=== PATIENT | male | born 1975 | race Caucasian/White ===

== ENCOUNTER 2019-03-15 11:06 | Emergency (ER) | payer BC, OTHER ==
[~2019-03-15] VITALS: Ht 170.2 cm; Wt 59.0 kg
[~2019-03-15 11:06] MED LIST: OXYC1TAB16 PO
[2019-03-15] MEDS ORDERED: TETANUS,DIPTH,PERTUSS P/F (BOOSTRIX) 0.5 ML VIAL IM ONE (11:30)
[2019-03-15] MEDS ORDERED: LIDOCAINE 1% INJ 20 ML 20 ML VIAL INJ ONE (11:30)
--- NOTE | 2019-03-15 11:38 | ED Upper Extremity ---
General Chief Complaint: Laceration Stated Complaint: WC LT HAND LAC Source: patient, other Exam Limitations: no limitations History of Present Illness Date Seen by Provider: Mar 15, 2019 Time Seen by Provider: 11:24 Initial Comments Patient presents to ER by private conveyance with chief complaint he was at work and had a piece of aluminum that was on his shoulder slide down his arm causing a small superficial laceration in his left forearm and resting on his left wrist causing a 3 cm laceration. He got the bleeding to stop immediately. He is not up-to-date on his tetanus shot. He is only having very mild pain has not taken anything for it. Does not have any significant medical or surgical history. Allergies and Home Medications Allergies Coded Allergies: No Known Drug Allergies (Unverified , 09/30/15) Home Medications No Active Prescriptions or Reported Meds Patient Home Medication List Home Medication List Reviewed: Yes Review of Systems Constitutional: No chills, No diaphoresis EENTM: No ear discharge, No ear pain Respiratory: No cough, No short of breath Cardiovascular: No chest pain, No edema Gastrointestinal: No abdominal pain, No nausea Past Tiybmfb-Zyzcic-Kskhum Hx Patient Social History Alcohol Use: Occasionally Uses Recreational Drug Use: No Smoking Status: Current Everyday Smoker Type Used: Cigarettes (1 ppd) 2nd Hand Smoke Exposure: No Recent Hopitalizations: No Immunizations Up To Date Tetanus Booster (TDap): Unknown Seasonal Allergies Seasonal Allergies: No Past Medical History Surgeries: Yes (HERNIA REPAIR) Respiratory: No Cardiac: No Neurological: No Reproductive Disorders: No Sexually Transmitted Disease: No HIV/AIDS: No Genitourinary: No Gastrointestinal: No Musculoskeletal: Yes (MILD SCOLIOSIS) Scoliosis Endocrine: No HEENT: No Loss of Vision: Bilateral Hearing Impairment: Denies Cancer: No Psychosocial: No Integumentary: No Blood Disorders: No Adverse Reaction/Blood Tranf: No Physical Exam Vital Signs Vital Signs - First Documented 03/15/19 11:10 Temp 97.5 Pulse 64 Resp 20 B/P (MAP) 114/73 (87) Pulse Ox 99 O2 Delivery Room Air Capillary Refill : Less Than 3 Seconds Height, Weight, BMI Height: 5'7.00" Weight: 130lbs. oz. 58.454430qh; 22.76 BMI Method:Stated General Appearance: WD/WN, no apparent distress HEENT: PERRL/EOMI, pharynx normal Cardiovascular: normal peripheral pulses, regular rate, rhythm Respiratory: no respiratory distress, no accessory muscle use Elbow/Forearm: normal inspection, non-tender, normal ROM, Left Neurologic/Tendon: normal sensation, normal motor functions, normal tendon functions, responds to pain, no evidence tendon injury Neurologic/Psychiatric: no motor/sensory deficits, alert, normal mood/affect, oriented x 3 Skin: normal color, warm/dry, other (3 cm laceration on the left dorsal wrist, half is superficial and half is into the subcutaneous. Left forearm has a V- shaped superficial skin tear approximately 1 cm) Procedures/Interventions Wound Location: Upper Extremities Other Wound Location Left dorsal wrist Wound Length (cm): 3 Wound's Depth, Shape: linear, sub Q Wound Explored: no foreign body removed Irrigated w/ Saline (ccs): 50 Betadine Prep?: Yes (chlorhexidine and sterile saline) Volume Anesthetic (ccs): 3 Suture: Ethlion Suture Size: 4-0 Number of Sutures: 4 Layer Closure?: 1 Sterile Dressing Applied?: Yes Progress The wound was thoroughly cleaned with chlorhexidine and sterile saline. We used gauze and thoroughly explored the wound demonstrating a small tear in the extensor retinaculum but the tendons were intact. No foreign debris was seen. We then infiltrated the skin edges with 3 cc of 1% lidocaine without epinephrine. We then reapproximated the skin edges and closed the wound using 4 simple interrupted sutures using 4-0 Ethilon. The patient tolerated procedure well. Progress/Results/Core Measures Results/Orders My Orders Orders - MAGDALENO PEREZ Lidocaine 1% Inj 20 Ml (Xylocaine 1% Inj (03/15/19 11:30) Dipht,Pertuss(Acell),Tet Adult (Boostrix (03/15/19 11:30) Medications Given in ED Current Medications Medications Dose Ordered Sig/Tracy Route Start Time Stop Time Status Last Admin Dose Admin Diphtheria/ Tetanus/Acell Pertussis 0.5 ml ONCE ONCE IM 03/15/19 11:30 03/15/19 11:31 DC 03/15/19 11:42 0.5 ML Lidocaine HCl 20 ml ONCE ONCE INJ 03/15/19 11:30 03/15/19 11:31 DC 03/15/19 11:41 5 ML Vital Signs/I&O 03/15/19 11:10 Temp 97.5 Pulse 64 Resp 20 B/P (MAP) 114/73 (87) Pulse Ox 99 O2 Delivery Room Air Progress Progress Note : Time: 11:32 Progress Note Skin laceration by sheet of aluminum. Low suspicion for risk of fracture. Offered x-ray and patient declined. Patient declining anything for pain at this time. We'll give him a tetanus shot, clean the wound thoroughly with chlor hexidine flush it out and then stitch it. Departure Impression Primary Impression: Laceration of left wrist without complication Qualified Codes: S61.512A - Laceration without foreign body of left wrist, initial encounter Additional Impression: Skin tear of left forearm without complication Qualified Codes: S51.812A - Laceration without foreign body of left forearm, initial encounter Disposition: HOME, SELF-CARE Condition: Improved Departure-Patient Inst. Decision time for Depature: 12:31 Referrals: VALENTINA REIS MD (PCP/Family) Primary Care Physician Patient Instructions: Laceration Repair With Stitches (DC) Add. Discharge Instructions: Keep the wound clean with right ear soap and water. Apply a small dollop of Vaseline over the stitches to keep them clean and then put a gauze dressing over it changed daily or as often as it becomes soiled. If you have swelling you can use an Garth bandage, ice and elevation of the hand above the level of your heart. Tylenol 1000 mg every 8 hours as needed for pain. Ibuprofen 800 mg every 8 hours as needed for pain. Return to the ER or to your primary care doctor in 7-10 days to have the stitches out. Take the Bactrim one tablet twice a day for the next 2 days to prevent infection. Return to the doctor if you see increased redness swelling or other signs of infection such as fever or nausea. All discharge instructions reviewed with patient and/or family. Voiced understanding. Scripts Sulfamethoxazole/Trimethoprim (Bactrim Ds Tablet) 1 Each Tablet 1 EACH PO BID for 2 Days, #4 TAB 0 Refills Prov: ANA,MAGDALENO Royal 03/15/19 Work/School Note: Work Release Form Date Seen in the Emergency Department: Mar 15, 2019 Return to Work: Mar 15, 2019 Restrictions: Need Release from Doctor Other Restrictions Listed Below: Sutures out in 7-10 days. Keep dressed with gauze and do not submerse hand. Restrictions: Minimize repetitive motion of left wrist until 6/14/19. MAGDALENO PEREZ J Mar 15, 2019 11:38
[2019-03-15] MEDS ORDERED: SULF1TAB35 PO (12:35)
[2019-03-15 12:49] VITALS: BP 108/65
--- NOTE | 2019-03-15 12:49 | NUR ---
4 SUTURES OF 4-0 MONOSOF PLACED.
--- NOTE | 2019-03-15 12:49 | NUR ---
DISCHARGED TO HOME WITH REVIEW OF INSTRUCTIONS VERBALIZED AND WORK COMP PAERWORK GIVEN.
== END 2019-03-15 12:49 | disposition home or self-care (01) ==
LOC: EDUNIT# 11:06 → ER FS 11:08
DX: S61.512A Laceration without foreign body of left wrist, initial encounter (principal); M41.9 Scoliosis, unspecified; F17.210 Nicotine dependence, cigarettes, uncomplicated; Z23 Encounter for immunization; Z98.890 Other specified postprocedural states; W26.8XXA Contact with other sharp object(s), not elsewhere classified, initial encounter
CPT/HCPCS: 12002; 90471; 90715